=== PATIENT | male | born 1990 | race Caucasian/White ===

== ENCOUNTER 2021-02-22 15:54 | Emergency (ER) | payer OTHER ==
[~2021-02-22] VITALS: Ht 177.8 cm; Wt 72.6 kg
[2021-02-22] MEDS ORDERED: TRUVADA 100 MG1 EACH (16:26)
== END 2021-02-22 17:55 | disposition home or self-care (01) ==
LOC: ER 15:54
DX: S81.022A Laceration with foreign body, left knee, initial encounter (principal); W25.XXXA Contact with sharp glass, initial encounter; Y93.89 Activity, other specified; Y92.89 Other specified places as the place of occurrence of the external cause; Y99.8 Other external cause status